=== PATIENT | male | born 1990 | race Caucasian/White ===

== ENCOUNTER 2019-01-01 08:58 | Emergency (ER) | payer OTHER, MEDICAID, SELFPAY ==
[2019-01-01] VITALS (14 sets, daily range): BP systolic 97–129; BP diastolic 56–76; PULSE 65–93; RESP 12–25; O2SAT 94–100
--- NOTE | 2019-01-01 08:59 | ED.OVERDOSE ---
HPI - Overdose General Chief Complaint: Unresponsive Stated Complaint: Agitated Time Seen by Provider: 01/01/19 08:59 Source: patient and EMS Mode of arrival: EMS History of Present Illness HPI Narrative: Patient is a 28-year-old male presents from snf he has been released from police custody. In snf he apparently was quite agitated and then had episodes of somnolence. He is somnolent now able to respond to his name speech is garbled. No sign of trauma. History methamphetamine opiate use and abuse. Unable to get much information Related Data Home Medications Medication Instructions Recorded Confirmed Unobtainable 01/01/19 01/01/19 Allergies Allergy/AdvReac Type Severity Reaction Status Date / Time erythromycin base Allergy Unknown Verified 01/01/19 09:03 [ERYTHROMYCIN BASE] Review of Systems Review of Systems ROS Unobtainable: Unobtainable due to medical condition and Unobtainable due to mental condition [facility] Social History (Updated 01/01/19 @ 09:04 by Justina Ingram DO) substance use type: heroin and methamphetamine Social History (Updated 01/01/19 @ 09:04 by Justina Ingram DO) substance use type: heroin and methamphetamine Comment: Unable to obtain medical history Exam Initial Vital Signs Initial Vital Signs: Vital Signs Pulse Rate 65 01/01/19 08:57 Respiratory Rate 16 01/01/19 08:57 Blood Pressure 129/66 01/01/19 08:57 Pulse Oximetry 97 01/01/19 08:57 GENERAL: Somnolent responds to voice HEENT: Head atraumatic,EOMI, pupils reactive-non pinpoint, face symmetri CARDIOVASCULAR: Regular rate and rhythm without murmurs, rubs or gallops. RESPIRATORY: Breath sounds equal bilaterally, no wheezes rales or rhonchi. ABDOMEN: Soft, nontender. Normoactive bowel sounds all 4 quadrants. No guarding or rebound. : No CVA tenderness EXTREMITIES: Normal range of motion, no clubbing or edema. Neurovascularly intact NEUROLOGICAL: Moving all extremities SKIN: Warm, dry, no laceration, no petechiae, no rashes or lesions. Course Orders Ordered: ED Orders 01/01/19 09:20 Urine Drug Screen, Rapid Stat 01/01/19 09:51 Acetaminophen Stat Complete Blood Count AUTO DIFF Stat Comprehensive Metabolic Panel Stat Ethanol (ETOH) Stat Salicylate Stat Discontinued Medications Sodium Chloride (Normal Saline 0.9%) 1,000 mls @ 1,000 mls/hr IV CONT TYLER Last Infusion: 01/01/19 12:00 Dose: 0 mls/hr Admin: 01/01/19 09:26 Dose: 1,000 mls/hr Naloxone HCl (Narcan) 0.4 mg IV PRN PRN PRN Reason: Opiate Reversal Last Admin: 01/01/19 09:27 Dose: 0.4 mg Vital Signs - 8 hr 01/01/19 08:57 01/01/19 09:00 01/01/19 09:31 Pulse Rate 65 74 71 Respiratory Rate 16 16 18 Blood Pressure 129/66 Blood Pressure [Right Arm] 111/70 119/60 Pulse Oximetry 97 97 100 01/01/19 09:39 01/01/19 10:02 01/01/19 10:30 Pulse Rate 74 72 74 Respiratory Rate 20 19 18 Blood Pressure Blood Pressure [Right Arm] 117/75 110/61 113/62 Pulse Oximetry 100 99 98 01/01/19 11:00 01/01/19 11:30 01/01/19 11:56 Pulse Rate 75 72 69 Respiratory Rate 16 16 15 Blood Pressure Blood Pressure [Right Arm] 104/58 L 113/56 L 106/59 L Pulse Oximetry 99 99 99 01/01/19 12:30 01/01/19 13:00 01/01/19 13:03 Pulse Rate 66 90 74 Respiratory Rate 13 18 12 Blood Pressure Blood Pressure [Right Arm] 105/64 97/63 97/63 Pulse Oximetry 100 100 99 01/01/19 13:30 01/01/19 14:15 Pulse Rate 90 93 H Respiratory Rate 25 H 16 Blood Pressure Blood Pressure [Right Arm] 98/59 L 128/76 Pulse Oximetry 100 94 MDM - Overdose Lab Data Attestation: I reviewed the patient's lab results. Result diagrams: 01/01/19 09:51 01/01/19 09:51 Lab Results 01/01/19 01/01/19 01/01/19 Range/Units 09:20 09:51 09:51 WBC 6.5 (4.5-11.0) X10^3/uL RBC 4.06 L (4.5-5.9) X10^6/uL Hgb 13.2 L (13.5-17.5) g/dL Hct 37.9 L (41-53) % MCV 93.3 (80-100) fL MCH 32.6 (26-34) PG MCHC 34.9 (30-36) % RDW 13.2 (11.6-14.8) % Plt Count 217 (150-400) X10^3/uL Neut % (Auto) 69.3 (50-75) % Lymph % (Auto) 14.5 L (25-40) % [place] % (Auto) 13.8 (3-14) % Eos % (Auto) 2.0 (2-4) % Baso % (Auto) 0.4 (0-2) % Neut # (Auto) 4500 (4552-6489) /uL Lymph # (Auto) 900 L (2745-7323) /uL [place] # (Auto) 900 (0-900) /uL Eos # (Auto) 100 (0-450) /uL Baso # (Auto) 0 (0-100) /uL Sodium 136 L (137-145) mmol/L Potassium 4.2 (3.4-5.1) mmol/L Chloride 102 (98-107) mmol/L Carbon Dioxide 27 (22-32) mmol/L BUN 21 H (9-20) mg/dL Creatinine 0.70 (0.66-1.25) mg/dL Estimated GFR > 60.0 (>60) mL/min BUN/Creatinine Ratio 30.0 H (6-22) Glucose 97 (70-100) mg/dL Calcium 8.8 (8.4-10.2) mg/dL Total Bilirubin 0.5 (0.2-1.3) mg/dL AST 125 H (17-59) IU/L ALT 85 H (21-72) IU/L Alkaline Phosphatase 87 (38-126) U/L Total Protein 6.4 (6.3-8.2) g/dL Albumin 3.9 (3.5-5.0) g/dL Globulin 2.5 (1.7-4.1) g/dL Albumin/Globulin Ratio 1.6 (1.0-2.8) Salicylates < 1.0 (<20) mg/dL Urine Opiates Screen Positive H (Negative) Ur Oxycodone Screen Negative (Negative) Urine Methadone Screen Negative (Negative) Acetaminophen < 10 L (10-30) ug/mL Ur Barbiturates Screen Negative (Negative) U Tricyclic Antidepress Positive H (Negative) Ur Phencyclidine Scrn Negative (Negative) Ur Amphetamines Screen Positive H (Negative) U Methamphetamines Scrn Positive H (Negative) Ur MDMA Scrn (Ecstasy) Negative (Negative) U Benzodiazepines Scrn Negative (Negative) Urine Cocaine Screen Negative (Negative) U Marijuana (THC) Screen Negative (Negative) Ethyl Alcohol < 10 mg/dL MDM Narrative Medical decision making narrative: Patient given small dose of Narcan minimally responsive. His he is positive for opiates and methamphetamine. Think this is likely due from coming down off of stimulant matters and opiate intoxication. Patient on the monitor sleeping 2:00 p.m. at patient got up and walked out. He came back to get his IV out. Awake alert taking just has not slept in a while. Feels ready to go. Discharge Plan Departure Patient Disposition: Home Clinical Impression: Polysubstance abuse Discharge Date/Time: 01/01/19 14:16 Interventions: ED Discharge Assessment Last Done: 01/01/19 14:15 Instructions: DI for Drug Overdose in Adults Activity Restrictions/Additional Instructions: *You have been diagnosed with polysubstance abuse *What to do: STOP USING DRUGS *Follow up with your primary care provider in 2-3 days *Return to ER if you should have any new, worsening or concerning symptoms Prescriptions: No Action Unobtainable RF: 0
--- NOTE | 2019-01-01 09:05 | ED_ITS ---
HPI - Overdose General Chief Complaint: Unresponsive Stated Complaint: Agitated Time Seen by Provider: 01/01/19 08:59 Source: patient and EMS Mode of arrival: EMS History of Present Illness HPI Narrative: Patient is a 28-year-old male presents from correction he has been released from police custody. In correction he apparently was quite agitated and then had episodes of somnolence. He is somnolent now able to respond to his name speech is garbled. No sign of trauma. History methamphetamine opiate use and abuse. Unable to get much information Related Data Home Medications Medication Instructions Recorded Confirmed Unobtainable 01/01/19 01/01/19 Allergies Allergy/AdvReac Type Severity Reaction Status Date / Time erythromycin base Allergy Unknown Verified 01/01/19 09:03 [ERYTHROMYCIN BASE] Review of Systems Review of Systems ROS Unobtainable: Unobtainable due to medical condition and Unobtainable due to mental condition [facility] Social History (Updated 01/01/19 @ 09:04 by Justina Ingram DO) substance use type: heroin and methamphetamine Social History (Updated 01/01/19 @ 09:04 by Justina Ingram DO) substance use type: heroin and methamphetamine Comment: Unable to obtain medical history Exam Initial Vital Signs Initial Vital Signs: Vital Signs Pulse Rate 65 01/01/19 08:57 Respiratory Rate 16 01/01/19 08:57 Blood Pressure 129/66 01/01/19 08:57 Pulse Oximetry 97 01/01/19 08:57 GENERAL: Somnolent responds to voice HEENT: Head atraumatic,EOMI, pupils reactive-non pinpoint, face symmetri CARDIOVASCULAR: Regular rate and rhythm without murmurs, rubs or gallops. RESPIRATORY: Breath sounds equal bilaterally, no wheezes rales or rhonchi. ABDOMEN: Soft, nontender. Normoactive bowel sounds all 4 quadrants. No guarding or rebound. : No CVA tenderness EXTREMITIES: Normal range of motion, no clubbing or edema. Neurovascularly intact NEUROLOGICAL: Moving all extremities SKIN: Warm, dry, no laceration, no petechiae, no rashes or lesions. Course Orders Ordered: ED Orders 01/01/19 09:20 Urine Drug Screen, Rapid Stat 01/01/19 09:51 Acetaminophen Stat Complete Blood Count AUTO DIFF Stat Comprehensive Metabolic Panel Stat Ethanol (ETOH) Stat Salicylate Stat Discontinued Medications Sodium Chloride (Normal Saline 0.9%) 1,000 mls @ 1,000 mls/hr IV CONT TYLER Last Infusion: 01/01/19 12:00 Dose: 0 mls/hr Admin: 01/01/19 09:26 Dose: 1,000 mls/hr Naloxone HCl (Narcan) 0.4 mg IV PRN PRN PRN Reason: Opiate Reversal Last Admin: 01/01/19 09:27 Dose: 0.4 mg Vital Signs - 8 hr 01/01/19 08:57 01/01/19 09:00 01/01/19 09:31 Pulse Rate 65 74 71 Respiratory Rate 16 16 18 Blood Pressure 129/66 Blood Pressure [Right Arm] 111/70 119/60 Pulse Oximetry 97 97 100 01/01/19 09:39 01/01/19 10:02 01/01/19 10:30 Pulse Rate 74 72 74 Respiratory Rate 20 19 18 Blood Pressure Blood Pressure [Right Arm] 117/75 110/61 113/62 Pulse Oximetry 100 99 98 01/01/19 11:00 01/01/19 11:30 01/01/19 11:56 Pulse Rate 75 72 69 Respiratory Rate 16 16 15 Blood Pressure Blood Pressure [Right Arm] 104/58 L 113/56 L 106/59 L Pulse Oximetry 99 99 99 01/01/19 12:30 01/01/19 13:00 01/01/19 13:03 Pulse Rate 66 90 74 Respiratory Rate 13 18 12 Blood Pressure Blood Pressure [Right Arm] 105/64 97/63 97/63 Pulse Oximetry 100 100 99 01/01/19 13:30 01/01/19 14:15 Pulse Rate 90 93 H Respiratory Rate 25 H 16 Blood Pressure Blood Pressure [Right Arm] 98/59 L 128/76 Pulse Oximetry 100 94 MDM - Overdose Lab Data Attestation: I reviewed the patient's lab results. Result diagrams: 01/01/19 09:51 01/01/19 09:51 Lab Results 01/01/19 01/01/19 01/01/19 Range/Units 09:20 09:51 09:51 WBC 6.5 (4.5-11.0) X10^3/uL RBC 4.06 L (4.5-5.9) X10^6/uL Hgb 13.2 L (13.5-17.5) g/dL Hct 37.9 L (41-53) % MCV 93.3 (80-100) fL MCH 32.6 (26-34) PG MCHC 34.9 (30-36) % RDW 13.2 (11.6-14.8) % Plt Count 217 (150-400) X10^3/uL Neut % (Auto) 69.3 (50-75) % Lymph % (Auto) 14.5 L (25-40) % [place] % (Auto) 13.8 (3-14) % Eos % (Auto) 2.0 (2-4) % Baso % (Auto) 0.4 (0-2) % Neut # (Auto) 4500 (2962-8524) /uL Lymph # (Auto) 900 L (9030-8838) /uL [place] # (Auto) 900 (0-900) /uL Eos # (Auto) 100 (0-450) /uL Baso # (Auto) 0 (0-100) /uL Sodium 136 L (137-145) mmol/L Potassium 4.2 (3.4-5.1) mmol/L Chloride 102 (98-107) mmol/L Carbon Dioxide 27 (22-32) mmol/L BUN 21 H (9-20) mg/dL Creatinine 0.70 (0.66-1.25) mg/dL Estimated GFR > 60.0 (>60) mL/min BUN/Creatinine Ratio 30.0 H (6-22) Glucose 97 (70-100) mg/dL Calcium 8.8 (8.4-10.2) mg/dL Total Bilirubin 0.5 (0.2-1.3) mg/dL AST 125 H (17-59) IU/L ALT 85 H (21-72) IU/L Alkaline Phosphatase 87 (38-126) U/L Total Protein 6.4 (6.3-8.2) g/dL Albumin 3.9 (3.5-5.0) g/dL Globulin 2.5 (1.7-4.1) g/dL Albumin/Globulin Ratio 1.6 (1.0-2.8) Salicylates < 1.0 (<20) mg/dL Urine Opiates Screen Positive H (Negative) Ur Oxycodone Screen Negative (Negative) Urine Methadone Screen Negative (Negative) Acetaminophen < 10 L (10-30) ug/mL Ur Barbiturates Screen Negative (Negative) U Tricyclic Antidepress Positive H (Negative) Ur Phencyclidine Scrn Negative (Negative) Ur Amphetamines Screen Positive H (Negative) U Methamphetamines Scrn Positive H (Negative) Ur MDMA Scrn (Ecstasy) Negative (Negative) U Benzodiazepines Scrn Negative (Negative) Urine Cocaine Screen Negative (Negative) U Marijuana (THC) Screen Negative (Negative) Ethyl Alcohol < 10 mg/dL MDM Narrative Medical decision making narrative: Patient given small dose of Narcan minimally responsive. His he is positive for opiates and methamphetamine. Think this is likely due from coming down off of stimulant matters and opiate intoxication. Patient on the monitor sleeping 2:00 p.m. at patient got up and walked out. He came back to get his IV out. Awake alert taking just has not slept in a while. Feels ready to go. Discharge Plan Departure Patient Disposition: Home Clinical Impression: Polysubstance abuse Discharge Date/Time: 01/01/19 14:16 Interventions: ED Discharge Assessment Last Done: 01/01/19 14:15 Instructions: DI for Drug Overdose in Adults Activity Restrictions/Additional Instructions: *You have been diagnosed with polysubstance abuse *What to do: STOP USING DRUGS *Follow up with your primary care provider in 2-3 days *Return to ER if you should have any new, worsening or concerning symptoms Prescriptions: No Action Unobtainable RF: 0
[2019-01-01] MEDS: SODIUM CHLORIDE 0.9% 1,000 ML 1000 ML IV (09:26)
[2019-01-01] MEDS: NALOXONE 1 MG/ML SYRINGE 0.4 MG IV (09:27)
[2019-01-01 09:41] LABS: Urine Amphetamines Positive (Negative); Urine Barbiturates Negative (Negative); Urine Benzodiazepines Negative (Negative); Urine Cocaine Negative (Negative); Urine MDMA Negative (Negative); Urine Methadone Negative (Negative); Urine Methamphetamines Positive (Negative); Urine Morphine/Opi cutoff 2000 Positive (Negative); Urine Oxycodone Negative (Negative); Urine Phencyclidine Negative (Negative); Urine Tetrahydrocannabinol Negative (Negative); Urine Tricyclic Antidepressant Positive (Negative)
[2019-01-01 10:00] LABS: Add Manual Diff / Slide Review NO; Basophils Absolute Auto 0 /uL (0-100); Basophils Percent Auto 0.4 % (0-2); Eosinophils Absolute Auto 100 /uL (0-450); Hematocrit 37.9 % (41-53); Hemoglobin 13.2 g/dL (13.5-17.5); Lymphocytes Absolute Auto 900 /uL (1100-4500); Lymphocytes Percent Auto 14.5 % (25-40); Mean Corpuscular HGB Conc 34.9 % (30-36); Mean Corpuscular Hemoglobin 32.6 PG (26-34); Mean Corpuscular Volume 93.3 fL (80-100); Monocytes Absolute Auto 900 /uL (0-900); Monocytes Percent Auto 13.8 % (3-14); Neutrophils Absolute Auto 4500 /uL (1500-7000); Neutrophils Percent Auto 69.3 % (50-75); Platelet Count 217 X10^3/uL (150-400); Red Blood Cell Count 4.06 X10^6/uL (4.5-5.9); Red Cell Distribution Width 13.2 % (11.6-14.8); White Blood Cell Count 6.5 X10^3/uL (4.5-11.0)
[2019-01-01 10:13] LABS: Acetaminophen < 10 ug/mL (10-30); Alanine Aminotransferase 85 IU/L (21-72); Albumin 3.9 g/dL (3.5-5.0); Albumin Globulin Ratio 1.6 (1.0-2.8); Alkaline Phosphatase 87 U/L (38-126); Aspartate Aminotransferase 125 IU/L (17-59); Bilirubin Total 0.5 mg/dL (0.2-1.3); Blood Urea Nitrogen 21 mg/dL (9-20); Calcium 8.8 mg/dL (8.4-10.2); Carbon Dioxide 27 mmol/L (22-32); Chloride 102 mmol/L (98-107); Estimated Glomerular Filt Rate > 60.0 mL/min (>60); Ethanol (ETOH) < 10 mg/dL; Globulin 2.5 g/dL (1.7-4.1); Glucose 97 mg/dL (70-100); HEMOLYSIS < 15 (0-50); Potassium 4.2 mmol/L (3.4-5.1); Sodium 136 mmol/L (137-145); Total Protein 6.4 g/dL (6.3-8.2)
[2019-01-01 10:23] LABS: Salicylate < 1.0 mg/dL (<20)
--- NOTE | 2019-01-01 12:03 | ED.GENADULT ---
HPI - General Adult General Chief complaint: Unresponsive Stated complaint: Agitated Time Seen by Provider: 01/01/19 08:59 Source: patient and EMS Mode of arrival: EMS Related Data Home Medications Medication Instructions Recorded Confirmed Unobtainable 01/01/19 01/01/19 Allergies Allergy/AdvReac Type Severity Reaction Status Date / Time erythromycin base Allergy Unknown Verified 01/01/19 09:03 [ERYTHROMYCIN BASE] [facility] Social History (Updated 01/01/19 @ 09:04 by Justina Ingram DO) substance use type: heroin and methamphetamine Social History (Updated 01/01/19 @ 09:04 by Justina Ingram DO) substance use type: heroin and methamphetamine Exam Initial Vital Signs Initial Vital Signs: Vital Signs Pulse Rate 65 01/01/19 08:57 Respiratory Rate 16 01/01/19 08:57 Blood Pressure 129/66 01/01/19 08:57 Pulse Oximetry 97 01/01/19 08:57 Scores PECARN GCS less than or equal to 14, palpable skull fracture or signs of AMS: No LOC, or vomiting, or severe mechanism of injury, or severe headache: No Multiple findings or worsening symptoms: Yes Course Orders Ordered: ED Orders 01/01/19 09:20 Urine Drug Screen, Rapid Stat 01/01/19 09:51 Acetaminophen Stat Complete Blood Count AUTO DIFF Stat Comprehensive Metabolic Panel Stat Ethanol (ETOH) Stat Salicylate Stat Sodium Chloride (Normal Saline 0.9%) 1,000 mls @ 1,000 mls/hr IV CONT TYLER Last Infusion: 01/01/19 12:00 Dose: 0 mls/hr Admin: 01/01/19 09:26 Dose: 1,000 mls/hr Naloxone HCl (Narcan) 0.4 mg IV PRN PRN PRN Reason: Opiate Reversal Last Admin: 01/01/19 09:27 Dose: 0.4 mg Vital Signs - 8 hr 01/01/19 08:57 01/01/19 09:00 01/01/19 09:31 Pulse Rate 65 74 71 Respiratory Rate 16 16 18 Blood Pressure 129/66 Blood Pressure [Right Arm] 111/70 119/60 Pulse Oximetry 97 97 100 01/01/19 09:39 01/01/19 10:02 01/01/19 10:30 Pulse Rate 74 72 74 Respiratory Rate 20 19 18 Blood Pressure Blood Pressure [Right Arm] 117/75 110/61 113/62 Pulse Oximetry 100 99 98 01/01/19 11:00 01/01/19 11:30 01/01/19 11:56 Pulse Rate 75 72 69 Respiratory Rate 16 16 15 Blood Pressure Blood Pressure [Right Arm] 104/58 L 113/56 L 106/59 L Pulse Oximetry 99 99 99 Medical Decision Making Lab Data Result diagrams: 01/01/19 09:51 01/01/19 09:51 Lab Results 01/01/19 01/01/19 01/01/19 Range/Units 09:20 09:51 09:51 WBC 6.5 (4.5-11.0) X10^3/uL RBC 4.06 L (4.5-5.9) X10^6/uL Hgb 13.2 L (13.5-17.5) g/dL Hct 37.9 L (41-53) % MCV 93.3 (80-100) fL MCH 32.6 (26-34) PG MCHC 34.9 (30-36) % RDW 13.2 (11.6-14.8) % Plt Count 217 (150-400) X10^3/uL Neut % (Auto) 69.3 (50-75) % Lymph % (Auto) 14.5 L (25-40) % [place] % (Auto) 13.8 (3-14) % Eos % (Auto) 2.0 (2-4) % Baso % (Auto) 0.4 (0-2) % Neut # (Auto) 4500 (5695-7006) /uL Lymph # (Auto) 900 L (9999-8843) /uL [place] # (Auto) 900 (0-900) /uL Eos # (Auto) 100 (0-450) /uL Baso # (Auto) 0 (0-100) /uL Sodium 136 L (137-145) mmol/L Potassium 4.2 (3.4-5.1) mmol/L Chloride 102 (98-107) mmol/L Carbon Dioxide 27 (22-32) mmol/L BUN 21 H (9-20) mg/dL Creatinine 0.70 (0.66-1.25) mg/dL Estimated GFR > 60.0 (>60) mL/min BUN/Creatinine Ratio 30.0 H (6-22) Glucose 97 (70-100) mg/dL Calcium 8.8 (8.4-10.2) mg/dL Total Bilirubin 0.5 (0.2-1.3) mg/dL AST 125 H (17-59) IU/L ALT 85 H (21-72) IU/L Alkaline Phosphatase 87 (38-126) U/L Total Protein 6.4 (6.3-8.2) g/dL Albumin 3.9 (3.5-5.0) g/dL Globulin 2.5 (1.7-4.1) g/dL Albumin/Globulin Ratio 1.6 (1.0-2.8) Salicylates < 1.0 (<20) mg/dL Urine Opiates Screen Positive H (Negative) Ur Oxycodone Screen Negative (Negative) Urine Methadone Screen Negative (Negative) Acetaminophen < 10 L (10-30) ug/mL Ur Barbiturates Screen Negative (Negative) U Tricyclic Antidepress Positive H (Negative) Ur Phencyclidine Scrn Negative (Negative) Ur Amphetamines Screen Positive H (Negative) U Methamphetamines Scrn Positive H (Negative) Ur MDMA Scrn (Ecstasy) Negative (Negative) U Benzodiazepines Scrn Negative (Negative) Urine Cocaine Screen Negative (Negative) U Marijuana (THC) Screen Negative (Negative) Ethyl Alcohol < 10 mg/dL Discharge Plan Departure Prescriptions: No Action Unobtainable RF: 0
--- NOTE | 2019-01-01 12:06 | ED_ITS ---
HPI - General Adult General Chief complaint: Unresponsive Stated complaint: Agitated Time Seen by Provider: 01/01/19 08:59 Source: patient and EMS Mode of arrival: EMS Related Data Home Medications Medication Instructions Recorded Confirmed Unobtainable 01/01/19 01/01/19 Allergies Allergy/AdvReac Type Severity Reaction Status Date / Time erythromycin base Allergy Unknown Verified 01/01/19 09:03 [ERYTHROMYCIN BASE] [facility] Social History (Updated 01/01/19 @ 09:04 by Justina Ingram DO) substance use type: heroin and methamphetamine Social History (Updated 01/01/19 @ 09:04 by Justina Ingram DO) substance use type: heroin and methamphetamine Exam Initial Vital Signs Initial Vital Signs: Vital Signs Pulse Rate 65 01/01/19 08:57 Respiratory Rate 16 01/01/19 08:57 Blood Pressure 129/66 01/01/19 08:57 Pulse Oximetry 97 01/01/19 08:57 Scores PECARN GCS less than or equal to 14, palpable skull fracture or signs of AMS: No LOC, or vomiting, or severe mechanism of injury, or severe headache: No Multiple findings or worsening symptoms: Yes Course Orders Ordered: ED Orders 01/01/19 09:20 Urine Drug Screen, Rapid Stat 01/01/19 09:51 Acetaminophen Stat Complete Blood Count AUTO DIFF Stat Comprehensive Metabolic Panel Stat Ethanol (ETOH) Stat Salicylate Stat Sodium Chloride (Normal Saline 0.9%) 1,000 mls @ 1,000 mls/hr IV CONT TYLER Last Infusion: 01/01/19 12:00 Dose: 0 mls/hr Admin: 01/01/19 09:26 Dose: 1,000 mls/hr Naloxone HCl (Narcan) 0.4 mg IV PRN PRN PRN Reason: Opiate Reversal Last Admin: 01/01/19 09:27 Dose: 0.4 mg Vital Signs - 8 hr 01/01/19 08:57 01/01/19 09:00 01/01/19 09:31 Pulse Rate 65 74 71 Respiratory Rate 16 16 18 Blood Pressure 129/66 Blood Pressure [Right Arm] 111/70 119/60 Pulse Oximetry 97 97 100 01/01/19 09:39 01/01/19 10:02 01/01/19 10:30 Pulse Rate 74 72 74 Respiratory Rate 20 19 18 Blood Pressure Blood Pressure [Right Arm] 117/75 110/61 113/62 Pulse Oximetry 100 99 98 01/01/19 11:00 01/01/19 11:30 01/01/19 11:56 Pulse Rate 75 72 69 Respiratory Rate 16 16 15 Blood Pressure Blood Pressure [Right Arm] 104/58 L 113/56 L 106/59 L Pulse Oximetry 99 99 99 Medical Decision Making Lab Data Result diagrams: 01/01/19 09:51 01/01/19 09:51 Lab Results 01/01/19 01/01/19 01/01/19 Range/Units 09:20 09:51 09:51 WBC 6.5 (4.5-11.0) X10^3/uL RBC 4.06 L (4.5-5.9) X10^6/uL Hgb 13.2 L (13.5-17.5) g/dL Hct 37.9 L (41-53) % MCV 93.3 (80-100) fL MCH 32.6 (26-34) PG MCHC 34.9 (30-36) % RDW 13.2 (11.6-14.8) % Plt Count 217 (150-400) X10^3/uL Neut % (Auto) 69.3 (50-75) % Lymph % (Auto) 14.5 L (25-40) % [place] % (Auto) 13.8 (3-14) % Eos % (Auto) 2.0 (2-4) % Baso % (Auto) 0.4 (0-2) % Neut # (Auto) 4500 (6313-6664) /uL Lymph # (Auto) 900 L (7233-4432) /uL [place] # (Auto) 900 (0-900) /uL Eos # (Auto) 100 (0-450) /uL Baso # (Auto) 0 (0-100) /uL Sodium 136 L (137-145) mmol/L Potassium 4.2 (3.4-5.1) mmol/L Chloride 102 (98-107) mmol/L Carbon Dioxide 27 (22-32) mmol/L BUN 21 H (9-20) mg/dL Creatinine 0.70 (0.66-1.25) mg/dL Estimated GFR > 60.0 (>60) mL/min BUN/Creatinine Ratio 30.0 H (6-22) Glucose 97 (70-100) mg/dL Calcium 8.8 (8.4-10.2) mg/dL Total Bilirubin 0.5 (0.2-1.3) mg/dL AST 125 H (17-59) IU/L ALT 85 H (21-72) IU/L Alkaline Phosphatase 87 (38-126) U/L Total Protein 6.4 (6.3-8.2) g/dL Albumin 3.9 (3.5-5.0) g/dL Globulin 2.5 (1.7-4.1) g/dL Albumin/Globulin Ratio 1.6 (1.0-2.8) Salicylates < 1.0 (<20) mg/dL Urine Opiates Screen Positive H (Negative) Ur Oxycodone Screen Negative (Negative) Urine Methadone Screen Negative (Negative) Acetaminophen < 10 L (10-30) ug/mL Ur Barbiturates Screen Negative (Negative) U Tricyclic Antidepress Positive H (Negative) Ur Phencyclidine Scrn Negative (Negative) Ur Amphetamines Screen Positive H (Negative) U Methamphetamines Scrn Positive H (Negative) Ur MDMA Scrn (Ecstasy) Negative (Negative) U Benzodiazepines Scrn Negative (Negative) Urine Cocaine Screen Negative (Negative) U Marijuana (THC) Screen Negative (Negative) Ethyl Alcohol < 10 mg/dL Discharge Plan Departure Prescriptions: No Action Unobtainable RF: 0
--- NOTE | 2019-01-01 13:04 | PC.NURSE ---
Pt is currently alert and oriented to self and place. Pt was able to state he was in [place] and that he had taken meth and heroin earlier. He is currently resting and vitals are stable.
== END 2019-01-01 14:16 | disposition home or self-care (01) ==
PROVIDERS: Emergency Provider Emergency Medicine
DX: F19.10 Other psychoactive substance abuse, uncomplicated (principal); R45.1 Restlessness and agitation; R47.89 Other speech disturbances; R40.0 Somnolence
CPT/HCPCS: 36415; 80053; 80305; 80320; 80329; 85025; 93041; 96361; 96374; 99284; 99285; 99291; G0480; J2310